=== PATIENT | female | born 1965 | race Caucasian/White ===

== ENCOUNTER 2016-06-22 20:43 | Emergency (ER) | payer MEDICARE, OTHER ==
[2016-06-22 14:28] LABS: BASOPHILS 0.2 %; BASOPHILS ABSOLUTE 0.03 10/3/uL (0.0-0.16); EOSINOPHILS 0.6 %; EOSINOPHILS ABSOLUTE 0.08 10/3/uL (0.0-0.53); HEMATOCRIT 36.1 % (36.0-48.0); HEMOGLOBIN 11.8 g/dL (12.0-16.0); IMMATURE GRANULOCYTES 0.2 %; IMMATURE GRANULOCYTES ABSOLUTE 0.02 10/3/uL (0.0-0.11); LYMPHOCYTES 17.1 %; LYMPHOCYTES ABSOLUTE 2.23 10/3/uL (0.67-4.30); MANUAL DIFF NO %; MEAN CORPUS HGB CONC 32.7 g/dL (32.0-36.0); MEAN CORPUSCULAR HEMOGLOB 26.7 pg (26.0-34.0); MEAN CORPUSCULAR VOLUME 81.7 fL (80-100); MEAN PLATELET VOLUME 8.6 fL (9.2-13.0); MONOCYTES 6.6 %; MONOCYTES ABSOLUTE 0.86 10/3/uL (0.21-1.20); NEUTROPHILS 75.3 %; NEUTROPHILS ABSOLUTE 9.85 10/3/uL (2.02-8.40); PLATELET COUNT 393 10/3/uL (150-400); RBC DISTRIBUTION WIDTH 17.2 % (12.0-16.0); RED CELL COUNT 4.42 10/6/uL (4.0-5.6); WHITE BLOOD CELLS 13.1 10/3/uL (4.5-10.5)
[2016-06-22 14:36] LABS: PARTIAL THROMBO TIME 30.9 SEC (22.5-37.2); PROTIME (NOT ORD) 13.1 SEC (12.0-14.5)
[2016-06-22 14:44] LABS: BUN (BLOOD UREA NITROGEN) 12 MG/DL (6-23); CALCIUM, SERUM 8.5 MG/DL (8.5-10.4); CHEST PAIN PROFILE TAT 0 Hrs 20 Mins; CHLORIDE, SERUM 92 MMOL/L (96-112); CO2 (CARBON DIOXIDE) 35 MMOL/L (24-34); CREATININE 1.32 MG/DL (0.55-1.02); GFR AFRICAN AMERICAN 54 ML/MIN (>=60); GFR NON AFRICAN AMERICAN 47 ML/MIN (>=60); SODIUM, SERUM 137 MMOL/L (135-148); TROPONIN I <0.02 NG/ML (<0.05)
[2016-06-22 14:48] LABS: GLUCOSE, SERUM 133 MG/DL (60-99)
[~2016-06-22 20:43] MED LIST: ACET500CAP PO; AMARYL2 PO; ASAB PO; AUG875 PO; BUM1 PO; CHANTIX1 PO; COREG12 PO; COREG25 PO; COREG3 PO; COREG6 PO; DALIRESP500 MCG PO; DELTADOSE; DULERA 100 MCG/13 GM INH; DUONEB INH; GLUCOPHAGE1000 MG PO; GLUCPH PO; INCRUSE ELLIPTA 62.5 INH; INCRUSE INH; INCRUSE INHALER INH; KLOR-CON 1010 MEQ PO; KLOR-CON M2020 MEQ PO; L40 PO; LEVOTHYROXIN75 MCG PO; LEVOTHYROXIN88 MCG PO; LINZESS 290 M290 MCG PO; MULTIVIT/MIN PO; MVI PO; NXL9 PO; P10; P10 PO; PRILOSEC40 MG PO; PROAIR HFA INH; PROVENTSOL INH; SINGULAIR1 PO; SPIRIVA INH; SYN075 PO; SYNTHROID200 MCG PO; V5 PO; VENTOLIN HFA INH; VITAMIN B-12 OTC PO; VITAMIN D OTC PO; VITAMIN D PO; VITAMIN PO; ZAROX2.5B PO; ZITH250 PO
[2016-06-22 21:50] LABS: D-DIMER QUANTITATIVE 2.06 ug/mLFEU (< 0.50)
[2016-08-24] MEDS ORDERED: VITD PO (14:48)
[2016-08-24] MEDS ORDERED: KLOR-CON M2020 MEQ PO (14:50)
[2016-08-24] MEDS ORDERED: APRES25 PO (14:52)
[2016-08-24] MEDS ORDERED: COZ25 PO (14:52)
== END 2016-06-23 01:47 | disposition home or self-care (01) ==
LOC: ER 20:43
PROVIDERS: Emergency Medicine
DX: R00.2 Palpitations (principal); R06.00 Dyspnea, unspecified; R07.81 Pleurodynia; J44.9 Chronic obstructive pulmonary disease, unspecified; I50.9 Heart failure, unspecified; E11.9 Type 2 diabetes mellitus without complications; F17.200 Nicotine dependence, unspecified, uncomplicated; Z91.041 Radiographic dye allergy status; Z91.040 Latex allergy status; Z91.013 Allergy to seafood; Z79.82 Long term (current) use of aspirin; Z79.899 Other long term (current) drug therapy
CPT/HCPCS: 71020; 78582; 80048; 83735; 83880; 84484; 85025; 85379; 85610; 85730; 93005; 96374; 96375; 99285; A9540; A9567; J2405